=== PATIENT | male | born 1945 | race Caucasian/White ===

== ENCOUNTER 2016-03-10 12:57 | Outpatient (RCR) | payer MEDICARE, OTHER | END 2016-03-29 08:00 | disposition home or self-care (01) | LOC: PT 12:57 | DX: M54.5 Low back pain (principal); M25.552 Pain in left hip ==

== ENCOUNTER → 2016-08-02 | Day surgery (SDC) | payer MEDICARE, OTHER | LOC: MSO 10:27 | DX: Z12.11 Encounter for screening for malignant neoplasm of colon (principal); K57.30 Diverticulosis of large intestine without perforation or abscess without bleeding; Z86.010 Personal history of colon polyps; K21.9 Gastro-esophageal reflux disease without esophagitis; Z87.891 Personal history of nicotine dependence; I10 Essential (primary) hypertension; Z85.46 Personal history of malignant neoplasm of prostate; Z96.652 Presence of left artificial knee joint; E78.00 Pure hypercholesterolemia, unspecified | CPT/HCPCS: 00810; J3010; J3490; J7030 ==

== ENCOUNTER 2017-05-10 11:30 | Outpatient (RCR) | payer MEDICARE, OTHER | END 2017-06-28 | disposition home or self-care (01) | LOC: PT | DX: M75.41 Impingement syndrome of right shoulder (principal) | CPT/HCPCS: G8979-GP; G8985-GP ==

== ENCOUNTER 2018-04-19 10:30 | Outpatient (RCR) | payer MEDICARE, OTHER | END 2018-04-19 11:00 | disposition still patient (30) | LOC: PT 10:30 | DX: Z47.1 Aftercare following joint replacement surgery (principal); Z96.651 Presence of right artificial knee joint | CPT/HCPCS: G8978-GP; G8979-GP ==

== ENCOUNTER 2018-05-11 11:30 | Outpatient (RCR) | payer MEDICARE, OTHER | END 2018-05-11 12:00 | disposition still patient (30) | LOC: PT 11:30 | DX: M75.121 Complete rotator cuff tear or rupture of right shoulder, not specified as traumatic (principal); R29.898 Other symptoms and signs involving the musculoskeletal system ==

== ENCOUNTER 2019-06-07 08:30 | Outpatient (RCR) | payer MEDICARE, OTHER | END 2019-06-10 | disposition still patient (30) | LOC: PT | DX: M25.511 Pain in right shoulder (principal); Z98.890 Other specified postprocedural states ==

== ENCOUNTER 2019-07-10 08:30 | Outpatient (RCR) | payer MEDICARE, OTHER | END 2019-07-10 09:00 | disposition still patient (30) | LOC: PT 08:30 | DX: M25.511 Pain in right shoulder (principal); Z98.890 Other specified postprocedural states ==

== ENCOUNTER 2019-11-25 09:00 | Outpatient (RCR) | payer MEDICARE, OTHER | END 2019-11-25 09:30 | disposition still patient (30) | LOC: OT 09:00 | DX: G56.01 Carpal tunnel syndrome, right upper limb (principal) ==

== ENCOUNTER 2019-12-04 09:00 | Outpatient (RCR) | payer MEDICARE, OTHER | END 2019-12-04 09:30 | disposition still patient (30) | LOC: OT 09:00 | DX: G56.01 Carpal tunnel syndrome, right upper limb (principal) ==

== ENCOUNTER 2020-04-08 16:44 | Emergency (ER) | payer MEDICARE, OTHER ==
[~2020-04-08] VITALS: Ht 175.3 cm; Wt 108.1 kg
[2020-04-08] MEDS ORDERED: HCTZ 25MG25 MG PO (16:59)
[2020-04-08] MEDS ORDERED: LOSARTAN POTASS50 M1 PO (17:00)
[2020-04-08] MEDS ORDERED: TRICOR145 M1 PO (17:00)
[2020-04-08] MEDS ORDERED: ALLOPURINOL300 M1 PO (17:00)
[2020-04-08] MEDS ORDERED: CYMBALTA30 M1 PO (17:05)
[2020-04-08] MEDS ORDERED: NORCO 325 MG-51 TA1 PO (18:35)
[2020-04-08 18:55] VITALS: BP 120/62
== END 2020-04-08 18:55 | disposition home or self-care (01) ==
LOC: ED 16:44
DX: M25.512 Pain in left shoulder (principal); I10 Essential (primary) hypertension; Z88.1 Allergy status to other antibiotic agents; W10.8XXA Fall (on) (from) other stairs and steps, initial encounter; Y92.009 Unspecified place in unspecified non-institutional (private) residence as the place of occurrence of the external cause
CPT/HCPCS: J3010

== ENCOUNTER 2020-06-01 09:52 | Outpatient (RCR) | payer MEDICARE, OTHER ==
[~2020-06-01 09:52] MED LIST: ALLOPURINOL300 M1 PO; CYMBALTA30 M1 PO; HCTZ 25MG25 MG PO; LOSARTAN POTASS50 M1 PO; NORCO 325 MG-51 TA1 PO; TRICOR145 M1 PO
== END 2020-08-30 ==
LOC: PT
DX: M25.512 Pain in left shoulder (principal)

== ENCOUNTER 2020-09-01 14:30 | Outpatient (RCR) | payer MEDICARE, OTHER | END 2020-11-30 | LOC: PT | DX: M67.812 Other specified disorders of synovium, left shoulder (principal) ==

== ENCOUNTER → 2023-05-23 | Outpatient (CLI) | payer MEDICARE, OTHER | LOC: RAD 14:16 | DX: R05.9 Cough, unspecified (principal) ==

== ENCOUNTER 2024-04-03 17:05 | Observation (INO) | payer MEDICARE, OTHER ==
[~2024-04-03] VITALS: Ht 185.4 cm; Wt 102.4 kg
[2024-04-03] MEDS ORDERED: GLUCOPHAGE (17:29)
[2024-04-03] MEDS ORDERED: TRULICITY3 MG/0.5 M SQ (17:29)
[2024-04-03] MEDS ORDERED: OMEPRAZOLE40 MG (17:29)
[2024-04-03 17:30] LABS: BASO # 0.07 K/mm3 (0.02-0.10); EOS # 0.34 K/mm3 (0.04-0.40); EOS % 4.3 % (0.0-4.0); HEMATOCRIT 43.3 % (42.0-52.0); HEMOGLOBIN 13.7 g/dL (13.5-18.0); LYMPH# 1.51 K/mm3 (1.50-4.00); MEAN CELL VOLUME 90 fl (78-100); MEAN CORPUSCULAR HEMOGLOBIN 28 pg (27-31); MEAN CORPUSCULAR HGB CONC 32 g/dL (33-37); MEAN PLATELET VOLUME 9.4 fl (7.4-10.4); MONO # 0.67 K/mm3 (0.20-0.80); NEU # 5.32 K/mm3 (1.40-6.50); PLATELET COUNT 260 K/mm3 (130-400); RED BLOOD COUNT 4.82 M/mm3 (4.20-5.60); RED CELL DISTRIBUTION WIDTH 13.1 % (11.5-14.5); WHITE BLOOD COUNT 7.9 K/mm3 (4.8-10.8)
[2024-04-03 17:34] LABS: ALBUMIN 4.2 g/dL (3.4-4.8)
[2024-04-03 17:35] LABS: CALCIUM 10.1 mg/dL (8.3-10.5)
[2024-04-03 17:37] LABS: TOTAL PROTEIN 6.9 g/dL (6.2-8.1)
[2024-04-03 17:38] LABS: TOTAL BILIRUBIN 0.3 mg/dL (0.2-1.2)
[2024-04-03 17:49] LABS: TROPONIN-I 0.03 ng/mL (0.00-0.033)
[2024-04-03] MEDS ORDERED: fentaNYL 100 MCG/2 ML VIAL IV ONE (18:00)
[2024-04-03] MEDS ORDERED: Ondansetron 4 MG/2 ML VIAL IV ONE (18:00)
[2024-04-03] MEDS ORDERED: Iohexol 300 - 100 ML VIAL IV ONE (18:31)
[2024-04-03] MEDS ORDERED: NS 100 ML IV ONE (18:32)
[2024-04-03] MEDS ORDERED: NS 1,000 ML IV SCH ×2 (19:15→22:00)
[2024-04-03] MEDS ORDERED: Morphine 4 MG/ML VIAL IV PRN (19:15)
[2024-04-03] MEDS ORDERED: Piperacillin/Tazobactam Sodium 3.375 GM in NS 100 ML IV ONE (20:00)
[2024-04-03] MEDS ORDERED: fentaNYL 100 MCG/2 ML VIAL IV PRN ×2 (20:45→22:00)
[2024-04-03 21:46] VITALS: BP 157/88
[2024-04-03] MEDS ORDERED: Ondansetron 4 MG/2 ML VIAL IV PRN (22:00)
[2024-04-03] MEDS ORDERED: Piperacillin/Tazobactam Sodium 3.375 GM in NS 100 ML IV SCH (22:00)
--- NOTE | 2024-04-03 22:22 | NUR ---
PT RECEIVED FOR ER IN WHEELCHAIR, PT IS AWAKE, A/OX4 PT IS ABLE TO WALK W/O MUCH ASSISTANCE, PT IS ABLE TO MAKE NEEDS KNOWN, PT IS ON 2L O2 NC PER PT HE WEARS IT AT NIGHT, PT HAS A 20G LC INT. WITH NS IVFLUIDS AT 125ML/HR, PT STATES HAVING ABD PAIN 2/10, PT DENIES N/V/D. PT DENIES FURTHER NEEDS, PT LEFT IN BED AT LOWEST POSITION ALARMED WITH CALL LIGHT IN REACH.
[2024-04-04] MEDS ORDERED: Piperacillin/Tazobactam Sodium 3.375 GM in NS 100 ML IV SCH (03:00)
[2024-04-04 03:25] VITALS: BP 117/67
[2024-04-04] MEDS ORDERED: Acetaminophen 325 MG TAB PO PRN (03:45)
[2024-04-04 07:06] VITALS: BP 109/60
[2024-04-04 07:52] LABS: HEMATOCRIT 40.4 % (42.0-52.0); MEAN CELL VOLUME 89 fl (78-100); MEAN CORPUSCULAR HEMOGLOBIN 29 pg (27-31); MEAN CORPUSCULAR HGB CONC 32 g/dL (33-37); MEAN PLATELET VOLUME 9.4 fl (7.4-10.4); PLATELET COUNT 245 K/mm3 (130-400); RED BLOOD COUNT 4.53 M/mm3 (4.20-5.60); WHITE BLOOD COUNT 15.4 K/mm3 (4.8-10.8)
[2024-04-04 08:03] LABS: ALBUMIN 3.7 g/dL (3.4-4.8)
[2024-04-04 08:04] LABS: CALCIUM 9.6 mg/dL (8.3-10.5)
[2024-04-04 08:07] LABS: TOTAL BILIRUBIN 0.6 mg/dL (0.2-1.2)
[2024-04-04 08:15] LABS: LYMPHOCYTE 5 % (20-51); MONOCYTE 6 % (3-10); NEUTROPHILS 89 % (42-75)
--- NOTE | 2024-04-04 08:20 | NUR ---
Pt resting in bed. Face flushed, diaphoretic. Reports abd pain /10. Requesting more pain medications. IV zosyn infusing as ordered to left AC. no concerns. Fall precautions in place. Call light in reach
[2024-04-04] MEDS ORDERED: Fenofibrate 54 MG TABLET PO SCH (09:00)
[2024-04-04] MEDS ORDERED: Pantoprazole 40 MG in NS 10 ML IV SCH (09:00)
[2024-04-04] MEDS ORDERED: hydroCHLOROthiazide 25 MG TAB PO SCH (09:00)
[2024-04-04] MEDS ORDERED: Allopurinol 300 MG TAB PO SCH (09:00)
[2024-04-04] MEDS ORDERED: Losartan 50 MG TAB PO SCH (09:00)
[2024-04-04] MEDS ORDERED: DULoxetine 30 MG CAP PO SCH (09:00)
--- NOTE | 2024-04-04 11:10 | NUR ---
PT D/C TRANSFER TO [facility] AT THIS TIME. 1018 FACE SHEET FAXED AND REPORT CALLED TO LUKASZ JEFFERSON.
== END 2024-04-04 11:10 | disposition short-term general hospital (02) ==
LOC: ED 17:05 → MED/SURG 20:01
PROVIDERS: Family Medicine; ADMIT Nurse Practitioner
DX: K81.9 Cholecystitis, unspecified (principal); A41.9 Sepsis, unspecified organism; I10 Essential (primary) hypertension; E11.9 Type 2 diabetes mellitus without complications; E78.2 Mixed hyperlipidemia; N28.89 Other specified disorders of kidney and ureter; Z79.85 Long-term (current) use of injectable non-insulin antidiabetic drugs; Z79.84 Long term (current) use of oral hypoglycemic drugs; Z87.891 Personal history of nicotine dependence
CPT/HCPCS: G0378; J2270; J2405; J2470; J2543; J3010; J7030; Q9967